=== PATIENT | male | born 1965 | race Caucasian/White ===

== ENCOUNTER 2024-02-01 13:34 | Outpatient (AMB) | payer BC, SELFPAY ==
--- NOTE | 2024-02-01 13:57 | HO.NEPHOV_ITS ---
Vital Signs 02/01/24 13:59 Height 5 ft 10 in Weight 192 lb 2 oz BMI 27.6 BP 130/80 Blood Pressure Location Lt brachial Position Sitting Pulse 87 Pulse Source Pulse Oximeter Pulse Oximetry (%) 96 Oxygen Delivery Method Room Air Intake Visit Reasons: CKD/ LVM Accompanied by: Self / Same As Patient Allergies No Known Allergies Allergy (Verified 02/01/24 13:54) HPI Comments Details: I had the privilege of seeing Sam in follow-up of his hypertension. He checks his blood pressure at home and has been at goal. He does not have any palpitation, syncope, orthostatic symptoms, headache, visual disturbances, chest pain, shortness of breath, paroxysmal nocturnal dyspnea, orthopnea, pedal edema. He does not take excessive salt in the diet and avoid nonsteroidal anti- inflammatory medications. He tries to maintain good hydration. He did not have any new complaints at the time of this office visit. [facility] Medical History (Updated 02/01/24 @ 14:13 by Fabio Hopkins MD) Hypertension Family History Father Hypertension Heart disease Social History (Updated 02/01/24 @ 14:01 by Emani Mobley MA) Alcohol intake: never Patient Tobacco Use Status: Never used Tobacco Physical Exam Vital Signs: Last Vital Signs Pulse 87 02/01/24 13:59 BP 130/80 02/01/24 13:59 Pulse Ox 96 02/01/24 13:59 Oxygen Delivery Method Room Air 02/01/24 13:59 BMI result Body Mass Index 27.6 Const General: comfortable and no acute distress Orientation/consciousness: patient oriented x3 HEENT Head: Yes normocephalic Mouth: Normal oral and palatal mucosa present Eyes EOM: EOMs intact bilaterally Neck Neck: Yes supple Resp Auscultation: clear to auscultation bilaterally Cardio Jugular venous distension: no JVD Rate: regular rate GI Palpation (GI): Soft to palpation Auscultation: normal bowel sounds General: Yes no CVA tenderness Back/Spine/Pelvis Back: no CVA tenderness Skin General skin exam: no rashes or lesions noted Neuro General: patient oriented x3 and moves all extremities Extrem General: Yes no pedal edema Results Reviewed Nephrology Results: No Data to Display Assessment & Plan Assessment & Plan (1) Hypertension: Code(s): I10 - Essential (primary) hypertension Category: Medical Qualifiers: Hypertension type: primary hypertension Qualified Code(s): I10 - Essential (primary) hypertension Stefan Vargas has longstanding hypertension. His blood pressure is very well controlled on the current dosage of metoprolol. Has no proteinuria, LVH, retinopathy or renal dysfunction. He does not consume excessive sodium in the diet and avoids nonsteroidal anti-inflammatories. Active and maintains good hydration. He has no history of any cardiac dysfunction. He is compliant with his medications. His electrolytes have been acceptable. I did not make any medication changes today. I refilled his metoprolol. Follow-up lab work ordered and follow-up appointment given. Answered all questions. Orders: Orders Electrolytes 02/01/24 I10 - Essential (primary) hypertension Blood Urea Nitrogen 02/01/24 I10 - Essential (primary) hypertension Creatinine 02/01/24 I10 - Essential (primary) hypertension Protein Creatinine Ratio, Ur 02/01/24 I10 - Essential (primary) hypertension Medications: New metoprolol succinate ER 75 mg (1.5 x 50 mg) PO DAILY 90 tabs 3RF Coding Level of Care Code Est Pt Level 4 (06791) Diagnoses Primary hypertension I10 Hypertension type: primary hypertension
[2024-02-01 13:59] VITALS: BP 130/80; PULSE 87; O2SAT 96; BMI 27.6
== END 2024-02-01 14:27 | disposition home or self-care (01) ==
PROVIDERS: PCP Internal Medicine; Visit Provider Internal Medicine Nephrology
DX: I10 Essential (primary) hypertension (principal)
CPT/HCPCS: 99214

== ENCOUNTER → 2024-02-01 13:34 | Outpatient (BNVA) | payer BC, SELFPAY | PROVIDERS: PCP Internal Medicine; Visit Provider Internal Medicine Nephrology ==

== ENCOUNTER 2024-03-22 11:59 | Outpatient (REF) | payer BC, SELFPAY ==
[2024-03-22 17:56] LABS: Anion Gap 11 (12-20); Blood Urea Nitrogen 15 mg/dL (9-16); Carbon Dioxide 30 mmol/L (22-29); Chloride 103 mmol/L (96-108); Estimated Glomerular Filt Rate > 60; Potassium 3.7 mmol/L (3.3-5.1); Sodium 140 mmol/L (135-145)
[2024-03-22 18:19] LABS: Creatinine Urine 175.09 mg/dL; Protein/Creatinine Ratio, Ur 0.05 (<0.2); Total Protein Urine Random 9 mg/dL (<12)
== END 2024-03-22 12:00 | disposition home or self-care (01) ==
LOC: HO.HKASLDS 11:59
PROVIDERS: Visit Provider Internal Medicine Nephrology
DX: I10 Essential (primary) hypertension (principal)
CPT/HCPCS: 36415; 80051; 82565; 82570; 84156; 84520

== ENCOUNTER 2024-12-26 12:06 | Outpatient (AMB) | payer BC, SELFPAY ==
[2024-12-26 12:12] VITALS: BP 130/80; PULSE 92; O2SAT 97; BMI 27.8
--- NOTE | 2024-12-26 12:12 | HO.NEPHOV ---
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 He checks his blood pressure at home and has been at goal. He does not have any palpitation, syncope, orthostatic symptoms, headache, visual disturbances, chest pain, shortness of breath, paroxysmal nocturnal dyspnea, orthopnea, pedal edema. He does not take excessive salt in the diet and avoid nonsteroidal anti-inflammatory medications. He tries to maintain good hydration. He did not have any new complaints at the time of this office visit. [facility] Medical History (Updated 02/01/24 @ 14:13 by Fabio Hopkins MD) Hypertension Family History Father Hypertension Heart disease Social History Alcohol intake: never Patient Tobacco Use Status: Never used Tobacco Review of Systems Const All systems reviewed & are unremarkable except as noted in HPI and below Physical Exam Vital Signs: Last Vital Signs Pulse 92 12/26/24 12:12 BP 148/82 H 12/26/24 12:12 Pulse Ox 97 12/26/24 12:12 Oxygen Delivery Method Room Air 12/26/24 12:12 BMI result Body Mass Index 27.8 Const General: comfortable and no acute distress Orientation/consciousness: patient oriented x3 HEENT Head: Yes normocephalic Mouth: Normal oral and palatal mucosa present Eyes EOM: EOMs intact bilaterally Neck Neck: Yes supple Resp Auscultation: clear to auscultation bilaterally Cardio Jugular venous distension: no JVD Rate: regular rate GI Palpation (GI): Soft to palpation Auscultation: normal bowel sounds General: Yes no CVA tenderness Back/Spine/Pelvis Back: no CVA tenderness Skin General skin exam: no rashes or lesions noted Neuro General: patient oriented x3 and moves all extremities Extrem General: Yes no pedal edema Assessment & Plan Assessment & Plan (1) Hypertension: Code(s): I10 - Essential (primary) hypertension Category: Medical Qualifiers: Hypertension type: primary hypertension Qualified Code(s): I10 - Essential (primary) hypertension Plan Sam has longstanding hypertension. His blood pressure is very well controlled on the current dosage of metoprolol. Has no proteinuria, LVH, retinopathy or renal dysfunction. He does not consume excessive sodium in the diet and avoids nonsteroidal anti-inflammatories. He is active and maintains good hydration. He has no history of any cardiac dysfunction. He is compliant with his medications. His electrolytes have been acceptable. I did not make any medication changes today. Answered all questions. Coding Level of Care Code Est Pt Level 4 (85411) Diagnoses Primary hypertension I10 Hypertension type: primary hypertension
--- OUTSIDE RECORDS SUMMARY | 2024-12-26 13:13 | XMS_ITS | Clinical Summary ---
Author Organization [facility] [address] [facility] lding Address [address] [place] [address] Phone Care Team Providers Care Impression Printer Name Role Phone Talisha Adan MD Primary Care Prov ider Allergies No known active allergies Medications metoprolol succinate (TOPROL-XL) 50 mg 24 hr tablet Take 1.5 tablets (75 mg total) by mouth. 07/22/2021 Active Active Problems Problem Noted Date Diagnosed Date Chest wall pain 07/31/2024 Assessment & Plan (07/31/2024 2:01 PM EST): 59-year-old man with reproducible anterior chest wall pain that is intermittent depending on what he is doing that has been ongoing for quite some time now. I did review his chest x-ray with him which is normal. We also talked about the possibility of this being costochondritis which is typically treated with a course of NSAIDs for 2 weeks time to see if these episodes which seem to be happening daily at least improved. I instructed him to take this with food and start an antacid during that time as well. He will call us back and see how that resolves. 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 Demonstrated on 24 hour BP monitor. Advised can continue with metoprolol Intermittent hypertension 01/18/2020 Overview (06/13/2024): [facility]. Demonstrated on 24 hour BP monitor. Advised can continue with metoprolol Enlarged thyroid 03/30/2019 Left hip pain 12/21/2016 Encounters Date Type Department Care Team Description 11/30/2024 12:02 PM EDT - 11/30/2024 11:59 PM EDT Hospital Encounter Xray - [address] [id number] History of Bzui-Bcvzb-Kyhgiir disease; Right hip pain; Chronic hip pain, bilateral; Left hip pain Discharge Disposition: Home or Self Care 11/30/2024 11:30 AM EDT Office Visit Adult Medicine - [address] [address] [place] Right hip pain (Primary Dx); History of Gdkb-Lacum-Jpsxhdk disease; Chronic hip pain, bilateral; White coat syndrome with diagnosis of hypertension; Left hip pain from Last 3 Months Immunizations Name Administration Dates Next Due Influenza Quadravalent, MDCK , 0.5ml, preservative free (Flucelvax) 6mo and older 07/24/2021 Influenza Quadravalent, MDCK , 0.5ml, with preservative (Flucelvax) 6mo and older 05/31/2017 Moderna SARS-CoV-2 COVID-19, mRNA, LNP-S, preservative free 05/01/2022 Tdap Tetanus diptheria acell ular pertussis (Boostrix; Adacel) 7yo and older 05/31/2017 Surgical History Surgery Date Site/Laterality Comments OTHER SURGICAL HISTORY PROCEDURE: DENIES PREVIOUS SURGERY COLONOSCOPY 02/18/2017 PROCEDURE: HISTORICAL COLONOSCOPY; COMMENT: normal; repeat in 10 yrs Medical History Medical History Date Comments Afvb-Aaenz-Euugaks syndrome DX:L vyb-Byewr-Qegexoy syndrome; COMMENT: Stopped wearing brace at 10 years old Left hip pain 12/21/2016 DX:Left hip pain Elevated blood pressure (not hypertension) 12/21/2016 DX:Elevated blood pressure ( not hypertension) 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 Demonstrated on 24 hour BP monitor. Advised can continue with metoprolol GERD (gastroesophageal reflux disease) Heart murmur Follicular lesion of thyroid Hyperlipidemia Family History Medical History Relation Name Comments Asthma Brother 1 Cr Jay Other: afib Brother 1 Cr Jay Sleep apnea Brother 1 Cr Jay No Known Problems Brother 2 Dementia Father Sam Jay Sr. from coronavirus Heart disease Father Sam Jay Sr. Hypertension Father Sam Jay Sr. alzheimers Pancreatic cancer Maternal Grandfather Colon cancer Maternal Grandmother Cancer Mother Tita Jay Lung cancer Mother Tita Jay halfway smo ker. at 74 Pancreatic cancer Mother's Brother Other: accident Paternal Grandfather Brain cancer Paternal Grandmother Relation Name Status Comments Brother 1 Cr Jay Alive Brother 2 Alive Father Sam Jay Sr. (Age 86) Maternal Grandfather Maternal Grandmother Mother Tita Jay (Age 74) Mother's Brother Paternal Grandfather Paternal Grandmother Social History Tobacco Use Types Packs/Day Years Used Date Smoking Tobacco: Never Smokeless Tobacco: Never Tobacco Cessation:Counseling Given: No Alcohol Use Standard Drinks/Week Comments Never 0 (1 standard drink = 0.6 oz pur e alcohol) Housing Instability Answer Date Recorde d Are you worried that in the next 2 months you may not have stable housing? No 07/17/2024 Food Access & Nutrition Answer Date Rec orded Do you have access to a vari ety of food including fruits and vegetables? Yes 07/17/2024 Access to Healthcare Answer Date Record ed Within the last 3 months, ina burger many times did you visit the emergency department for your medical care? 0 07/18/2024 Health Literacy Answer Date Recorded How often do you need to hav e someone help you when you read instructions, pamphlets, or other written material from your doctor or pharmacy? Never 07/17/2024 Caregiver: How often do you need to have someone help you when you read instructions, pamphlets, or other written material from your doctor or pharmacy? Not on file 07/17/2024 Financial Risk Answer Date Recorded How hard is it for you to pa y for the very basics like food, housing, medical care, and air conditioning / heating? Not very hard 07/17/2024 Transportation Answer Date Recorded Has the lack of transportati on kept you from meetings, work, or from getting things needed for daily living? No Has the lack of transportati on kept you from medical appointments or from getting medications? No 07/17/2024 Social Isolation Answer Date Recorded How often do you feel lonely or isolated from th ose around you? Never 07/17/2024 Food Risk Answer Date Recorded Within the past 12 months we worried whether our food would run out before we got money to buy more. Never true 07/17/2024 Within the past 12 months th e food we bought just didn't last and we didn't have money to get more. Never true 07/17/2024 Dependent Care Answer Date Recorded Do you need help finding or paying for care for your loved ones. For example, child care aide or elderly care for an older adult? No 07/17/2024 Education Answer Date Recorded Do you think completing more education or training, like finishing a GED, going to college, or learning a trade, would be helpful for you? No 07/17/2024 Employment and Income Answer Date Recor ded During the last four weeks, have you been actively looking for work? No 07/17/2024 Living Situation Answer Date Recorded What is your living situation? 1 09/17/2023 Sex and Gender Information Value Date Recorded Sex Assigned at Not on file Legal Sex Male 5:38 PM EST Gender Identity Not on file Sexual Orientation Not on file Obstetrics History Last Filed Vital Signs Vital Sign Reading Time Taken Comments Blood Pressure 170/92 11/30/2024 11:31 AM EDT Pulse 92 07/31/2024 1:43 PM EST Temperature 36.6 ??C (97.9 ??F) 11/30/2024 11:31 AM E DT Respiratory Rate 14 07/31/2024 1:43 PM EST Oxygen Saturation 100% 07/31/2024 1:43 PM EST Inhaled Oxygen Concentration - - Weight 88 kg (194 lb) 11/30/2024 11:31 AM EDT Height 177.8 cm (5' 10 ) 11/30/2024 11:31 AM EDT Body Mass Index 27.84 11/30/2024 11:31 AM EDT Plan of Treatment Health Maintenance Due Date Last Done Comments Pneumococcal Vaccine: 50+ Years (1 of 1 - PCV) 2015 Social Influencers of Health Screening 07/18/2025 07/18/2024 Hypertension/CHF/CAD Annual BMP Blood Test 07/19/2025 07/19/2024, 07/25/2021 Depression Screening 11/28/2025 11/28/2024 Colorectal Cancer Screening: Colonoscopy 02/18/2027 02/18/2017 DTaP,Tdap,and Td Vaccines (2 - Td or Tdap) 05/31/2027 05/31/2017 Cholesterol Screening (Lipid Panel) 07/19/2029 07/19/2024, 07/25/2021 RSV Immunization Adult Patients (1 - 1-dose 75+ series) 2040 Hepatitis C Screening Completed 06/02/2017 Zoster Vaccines Completed 07/09/2022, 05/01/2022 COVID-19 Vaccine Completed 04/17/2024, , 05/01/2022, Additional history exists Influenza Vaccine Completed 04/17/2024, , 07/09/2022, Additional history exists HIB Vaccines Aged Out No longer eligi ble based on patient's age to complete this topic HIV Screening Discontinued HPV Vaccines Aged Out No longer eligi ble based on patient's age to complete this topic Hepatitis A Vaccines Aged Out No long er eligible based on patient's age to complete this topic Hepatitis B Vaccines Discontinued IPV Vaccines Aged Out No longer eligi ble based on patient's age to complete this topic MMR Vaccines Aged Out No longer eligi ble based on patient's age to complete this topic Meningococcal ACWY Vaccine Aged Out N o longer eligible based on patient's age to complete this topic Meningococcal B Vaccine Aged Out No l onger eligible based on patient's age to complete this topic Pneumococcal Vaccine: Pediatrics (0 to 5 Years) and At-Risk Patients (6 to 64 Years) Aged Out No longer eligible based on patient's age to complete this topic RSV Immunization Patients Under 20 months Aged Out No longer eligible based on patient's age to complete this topic Varicella Vaccines Aged Out No longer eligible based on patient's age to complete this topic Procedures Procedure Name Priority Date/Time Associated Diagnosis Comments XR HIPS 5+ VIEWS WO OR W PELVIS BILAT Routine 11/30/2024 12:09 PM EDT History of Ebux-Uftmb-Frjmzyr disease Right hip pain Chronic hip pain, bilateral Left hip pain COMPREHENSIVE METABOLIC PANEL Routine 07/19/2024 11:01 AM EST Labile hypertension LIPID PANEL WITH REFLEX TO DIRECT LDL Routine 07/19/2024 11:01 AM EST Hyperlipidemia, unspecified hyperlipidemia type HEPATITIS C SCREENING Routine 06/02/2017 COLONOSCOPY Routine 02/18/2017 from Last 3 Months or Most Recently Relevant to Health Maintenance Results * XR Hips 5+ Views wo or w Pelvis bilat (11/30/2024 12:09 PM EDT) Anatomical Region Laterality Modality Lower Extremities, Hip Bilateral Radiograp hic Imaging 11/30/2024 2:25 PM EDT Impressions 11/30/2024 2:31 PM EDT Chronic deformity of the right femoral head and neck is unchanged. This is likely developmental. Soft tissue tissue calcification seen superior to the left greater trochanter on the previous study is no longer identified. Mild spurring of the left greater trochanter. No acute findings. -------- FINAL REPORT -------- Dictated By: Stephanie Maldonado Dictated Date: 11/30/2024 14:25 ET Assigned Physician: Stephanie Maldonado Reviewed and Electronically Signed By: Stephanie Maldonado Signed Date: 11/30/2024 14:31 ET Workstation ID: [id number] Transcribed By: Self Edit Transcribed Date: 11/30/2024 14:25 ET Narrative 11/30/2024 2:31 PM EDT PELVIS, FRONTAL VIEW BILATERAL HIPS, 2 VIEWS EACH HISTORY: Bilateral hip pain, right greater than left. History of Legg calves Perthes disease. PRIOR: AP pelvis and left hip 03/30/2019. AP pelvis and bilateral hips 11/16/2016. FINDINGS: The hip joint spaces are symmetric and are maintained. Chronic deformity of the right femoral head and neck is not significantly changed. There is minor spurring of the left greater trochanter. No acute fracture or malalignment is seen. ??Soft tissues are normal. Procedure Note Stephanie Maldonado MD - 11/30/2024 PELVIS, FRONTAL VIEW BILATERAL HIPS, 2 VIEWS EACH HISTORY: Bilateral hip pain, right greater than left. History of Leggcalves Perthes disease. PRIOR: AP pelvis and left hip 03/30/2019. AP pelvis and bilateral hips11/16/2016. FINDINGS: The hip joint spaces are symmetric and are maintained. Chronic deformity of the right femoral head and neck is not significantlychanged. There is minor spurring of the left greater trochanter. No acute fracture or malalignment is seen. Soft tissues are normal. IMPRESSION: Chronic deformity of the right femoral head and neck is unchanged. This islikely developmental. Soft tissue tissue calcification seen superior to the left greatertrochanter on the previous study is no longer identified. Mild spurring of the left greater trochanter. No acute findings. -------- FINAL REPORT -------- Dictated By: Stephanie Maldonado Dictated Date: 11/30/2024 14:25 ET Assigned Physician: Stephanie Maldonado Reviewed and Electronically Signed By: Stephanie Maldonado Signed Date: 11/30/2024 14:31 ET Workstation ID: [id number] Transcribed By: Self Edit Transcribed Date: 11/30/2024 14:25 ET [place] [facility] IMG XR PROCEDURES Final Result * (ABNORMAL) Lipid panel with reflex to direct LDL (07/19/2024 11:01 AM EST) Cholesterol 211(H) 0 - 200 mg/dL LAB CHEMISTRY METHOD 07/19/2024 1:25 PM EST [facility] Triglycerides 154(H) 0 - 150 mg/dL LAB CHEMISTRY METHOD 07/19/2024 1:25 PM EST [facility] HDL 54 >=40 mg/dL LAB CHEMISTRY METHOD 07/19/2024 1:25 PM EST [facility] LDL Calculated 126(H) 0 - 100 mg/dL LAB CHEMISTRY METHOD 07/19/2024 1:25 PM [facility] VLDL Cholesterol Damian 30.8 mg/dL LAB CHEMISTRY METHOD 07/19/2024 1:25 PM EST [facility] Non HDL Chol. (LDL+VLDL) 157(H) <145 mg/dL LAB CHEMISTRY METHOD 07/19/2024 1:25 PM [facility] Chol/HDL Ratio 3.9 0.0 - 4.4 LAB CHEMISTRY METHOD 07/19/2024 1:25 PM [facility] Blood Venous blood specimen / Unknown Venipuncture / Unknown 07/19/2024 11:01 AM EST 07/19/2024 11:01 AM EST [place] [facility] LAB BLOOD ORDERABLES Final Res ult [facility] [address] [place] [address], * (ABNORMAL) Comprehensive metabolic panel (07/19/2024 11:01 AM EST) Sodium 139 133 - 145 mmol/L LAB CHEMISTRY METHOD 07/19/2024 1:25 PM [facility] Potassium 4.2 3.5 - 5.5 mmol/L LAB CHEMISTRY METHOD 07/19/2024 1:25 PM [facility] Chloride 103 96 - 110 mmol/L LAB CHEMISTRY METHOD 07/19/2024 1:25 PM [facility] CO2 30 21 - 32 mmol/L LAB CHEMISTRY METHOD 07/19/2024 1:25 PM [facility] Anion Gap 6 3 - 11 LAB CHEMISTRY METHOD 07/19/2024 1:25 PM [facility] Glucose 102(H) 70 - 100 mg/dL LAB CHEMISTRY METHOD 07/19/2024 1:25 PM [facility] BUN 14 5 - 25 mg/dL LAB CHEMISTRY METHOD 07/19/2024 1:25 PM [facility] Creatinine 0.90 0.70 - 1.30 mg/dL LAB CHEMISTRY METHOD 07/19/2024 1:25 PM [facility] eGFR 98 >=60 mL/min/1. 73m2 LAB CHEMISTRY METHOD 07/19/2024 1:25 PM [facility] Comment:Calculation based on the??Chronic Kidney Disease Epidemiology Collaboration (CKD-EPI) equation refit??without adjustment for race. BUN/Creatinine Ratio 15.6 LAB CHEMISTRY METHOD 07/19/2024 1:25 PM [facility] Calcium 9.9 8.5 - 10.5 mg/dL LAB CHEMISTRY METHOD 07/19/2024 1:25 PM [facility] AST (SGOT) 42 10 - 42 unit/L LAB CHEMISTRY METHOD 07/19/2024 1:25 PM [facility] ALT (SGPT) 58 10 - 60 unit/L LAB CHEMISTRY METHOD 07/19/2024 1:25 PM [facility] Alkaline Phosphatase 67 42 - 121 unit/L LAB CHEMISTRY METHOD 07/19/2024 1:25 PM [facility] Total Protein 7.5 6.0 - 8.0 g/dL LAB CHEMISTRY METHOD 07/19/2024 1:25 PM [facility] Albumin 4.1 3.2 - 5.0 g/dL LAB CHEMISTRY METHOD 07/19/2024 1:25 PM [facility] Total Bilirubin 0.8 0.0 - 1.4 mg/dL LAB CHEMISTRY METHOD 07/19/2024 1:25 PM [facility] Blood Venous blood specimen / Unknown Venipuncture / Unknown 07/19/2024 11:01 AM EST 07/19/2024 11:01 AM EST [place] [facility] LAB BLOOD ORDERABLES Final Res ult [facility] [address] [place] [address], [place] [phone] * Hepatitis C Screening (06/02/2017) Hepatitis C Screening Abstracted Historical Provider HEALTH MAINTENANCE Final Result * Colonoscopy (02/18/2017) Colonoscopy No interpretatio n, abstraced Anatomical Region Laterality Modality Other Historical Provider HEALTH MAINTENANCE Final Result from Last 3 Months or Most Recently Relevant to Health Maintenance Insurance [facility] Care Teams Impression Printer Relationship Specialty Start Date End Date Talisha Adan MD [address] [place] [id number] PCP - General Internal Medicine 11/12/16
--- OUTSIDE RECORDS SUMMARY | 2024-12-26 13:13 | XMS_ITS | Clinical Summary ---
Author Organization [facility] Address [address] [place] [address] Phone Care Team Providers Care Sewer Head Name Role Phone Talisha Adan MD Primary Care Pr ovider Allergies No known active allergies Medications metoprolol succinate XL (TOPROL XL) 50 MG 24 hr tablet TAKE 1 TABLET BY MOUTH EVERY DAY 90 tablet 5 04/16/2023 Active Active Problems Problem Noted Date Diagnosed Date Hypertension 07/22/2021 Intermittent hypertension 01/18/2020 Overview (07/22/2021): [facility]. Demonstrated on 24 hour BP monitor. Advised can continue with metoprolol Resolved Problems Problem Noted Date Diagnosed Date Resolved Date Goiter 03/30/2019 07/22/2021 H/O: musculoskeletal disease 03/30/2019 07/22/2021 Hip pain 12/21/2016 07/22/2021 Immunizations Immunization Administration Dates Next Due Influenza, MDCK, PF, Quadrivalent 07/24/2021 Influenza, MDCK, Quadrivalent, with preservative 05/31/2017 Tdap 05/31/2017 Family History Medical History Relation Comments Heart disease Father Hypertension Father Hypertension Mother Relation Status Comments Father Alive Mother Social History Tobacco Use Types Packs/Day Years Used Date Smoking Tobacco: Never Smokeless Tobacco: Never Tobacco Cessation:Counseling Given: No Alcohol Use Standard Drinks/Week Comments No 0 (1 standard drink = 0.6 oz pur e alcohol) Sex and Gender Information Value Date Recorded Sex Assigned at Not on file Legal Sex Male 4:49 PM EST Gender Identity Not on file Sexual Orientation Not on file Last Filed Vital Signs Vital Sign Reading Time Taken Comments Blood Pressure 148/84 02/01/2023 1:28 PM EDT Pulse 104 02/01/2023 1:28 PM EDT Temperature - - Respiratory Rate - - Oxygen Saturation 99% 07/22/2021 2:43 PM EST Inhaled Oxygen Concentration - - Weight 88.5 kg (195 lb 3.2 oz) 02/01/2023 1:28 P M EDT Height 180.3 cm (5' 11 ) 01/11/2020 12:00 PM EDT Body Mass Index 27.22 01/11/2020 12:00 PM EDT Plan of Treatment Health Maintenance Due Date Last Done Comments Hepatitis B Vaccine (1 of 3 - 19+ 3-dose series) 1984 Pneumococcal Vaccine: 50+ Ye ars (1 of 2 - PCV) 1984 Colorectal Cancer Screening: Annual FOBT 2014 Colorectal Cancer Screening: Colonoscopy 2014 Colorectal Cancer Screening: Sigmoidoscopy 2014 Influenza Vaccine (Season Ended) 2025 07/24/20, 05/31/[address] [place] [address] [place] [address] [place] [address] Care Teams Sewer Head Relationship Specialty Start Date End Date Talisha Adan MD PCP - General 08/19/20
== END 2024-12-26 12:27 | disposition home or self-care (01) ==
LOC: HO.HKAS 12:07
PROVIDERS: PCP Internal Medicine; Visit Provider Internal Medicine Nephrology
DX: I10 Essential (primary) hypertension (principal)
CPT/HCPCS: 99214